=== PATIENT | male | born 1935 | race Caucasian/White ===

== ENCOUNTER 2016-07-14 11:22 | Outpatient (CLI) | payer OTHER ==
--- NOTE | 2016-07-14 23:43 | Diagnostic Imaging Report ---
ANISH LAWRENCE [facility] [address] [facility] [address] [address] Report Submission Date: Jul 14, 2016 12:53:34 PM CDT Patient Study Name: CECILE DOS SANTOS Date: Jul 14, 2016 11:43:04 AM CDT Modality Type: CR Gender: M Description: LOWER EXTREMITY : 31 Institution: [facility] Physician: ANISH LAWRENCE Right foot 3 views Clinical history pain Technique AP lateral oblique Findings: Prominent arthritic changes are present 1st metatarsophalangeal joint. No fracture lytic changes seen. The interphalangeal joint degenerative arthritis is present and multiple joints. The calcaneus appears normal Impression: Multi joint degenerative arthritis. No acute foot pathology Electronically signed on Jul 14, 2016 12:53:34 PM CDT by: Juvencio MORGAN
--- NOTE | 2016-07-14 23:44 | Diagnostic Imaging Report ---
ANISH LAWRENCE [facility] [address] [facility] [address] [address] Report Submission Date: Jul 14, 2016 12:57:12 PM CDT Patient Study Name: CECILE DOS SANTOS Date: Jul 14, 2016 11:40:42 AM CDT Modality Type: CR Gender: M Description: LOWER EXTREMITY : 33 Institution: [facility] Physician: ANISH LAWRENCE Right ankle 3 views Clinical history pain Technique AP lateral oblique Findings: Arthritic changes are present in the ankle joint. I see no fracture or lytic change. There soft tissue swelling. Impression: Soft tissue swelling with no acute bony pathology Electronically signed on Jul 14, 2016 12:57:12 PM CDT by: Juvencio MORGAN
== END 2016-07-14 11:23 ==
LOC: RAD 11:22
PROVIDERS: ATTEND Family Medicine
DX: E11.9 Type 2 diabetes mellitus without complications (principal); M79.671 Pain in right foot
CPT/HCPCS: 36415; 73610; 73630; 83036; 84550

== ENCOUNTER 2017-01-10 09:07 | Outpatient (CLI) | payer OTHER ==
[2017-01-10 09:52] LABS: eGFR (African) 41; eGFR (Non-African) 34
== END 2017-01-10 09:30 ==
LOC: LAB 09:07
PROVIDERS: ATTEND Family Medicine
DX: E11.9 Type 2 diabetes mellitus without complications (principal)
CPT/HCPCS: 36415; 80053; 80061; 82043; 83036

== ENCOUNTER 2017-05-03 13:33 | Outpatient (CLI) | payer OTHER ==
--- NOTE | 2017-05-05 09:38 | OP Clinic Progress Note ---
REASON FOR VISIT: This 82-year-old man is seen with bilateral hearing loss. He has had some effort made to have cerumen cleaned out of his ears but to no avail. Under the microscope in the clinic, I debrided and cleaned both ears of 100% obstructed ear canals bilaterally with hard impacted cerumen. After doing this , you can see both eardrums are intact and otherwise normal. PLAN: He may return on a p.r.n. basis. He is not given a specific appointment and his hearing is clinically markedly improved. cc: Dr. Renetta MORGAN
== END 2017-05-03 13:34 ==
LOC: ENT 13:33
PROVIDERS: ATTEND Otolaryngology
DX: H61.23 Impacted cerumen, bilateral (principal)
CPT/HCPCS: 69210; G0463

== ENCOUNTER 2017-11-01 15:02 | Outpatient (CLI) | payer OTHER ==
[2017-11-01 15:24] LABS: BASOPHILS % 0.4 (0.0-1.5); EOSINOPHILS % 1.2 % (0.0-6.8); MEAN CORPUSCULAR HEMOGLOBIN 32.9 pg (28.0-34.0); MEAN CORPUSCULAR VOLUME 99.8 fl (80.0-100.0); MONOCYTES % 5.1 % (0.0-11.0); NEUTROPHILS # 6.7 # k/uL (1.4-7.7)
== END 2017-11-01 15:03 ==
LOC: LAB 15:02
PROVIDERS: ATTEND Family Medicine
DX: M25.532 Pain in left wrist (principal)
CPT/HCPCS: 84550; 85025

== ENCOUNTER 2018-03-15 10:45 | Outpatient (CLI) | payer OTHER ==
[2018-03-15 14:03] LABS: eGFR (Non-African) 25
--- NOTE | 2018-03-15 16:23 | Diagnostic Imaging Report ---
ANISH LAWRENCE [facility] [address] [facility] [address] [address] Report Submission Date: Mar 15, 2018 12:02:50 PM REAL ESTATE ACCOUNTANT Patient Study Name: CECILE DOS SANTOS Date: Mar 15, 2018 11:06:17 AM REAL ESTATE ACCOUNTANT Modality Type: DX Gender: M Description: UPPER EXTREMITY : 33 Institution: [facility] Physician: ANISH LAWRENCE Examination: Plain film wrist History: LEFT WRIST, PAIN FOR ABOUT A WEEK, NO KNOWN INJURY (Hx) Comparison exams: None available Findings: 3 views of the left wrist demonstrates osteopenia. Articular degenerative changes: most pronounced involving the 1st carpal metacarpal articulation. No suspicious cortical abnormalities. No soft tissue abnormality. Impression: Osteopenia and degenerative changes. No acute appearing osseous abnormality Electronically signed on Mar 15, 2018 12:02:50 PM REAL ESTATE ACCOUNTANT by: Prince MORGAN
== END 2018-03-15 10:46 ==
LOC: LAB 10:45
PROVIDERS: ATTEND Family Medicine
DX: E11.9 Type 2 diabetes mellitus without complications (principal); M85.88 Other specified disorders of bone density and structure, other site; M24.132 Other articular cartilage disorders, left wrist; M25.532 Pain in left wrist
CPT/HCPCS: 36415; 73110; 80053; 80061; 83036; 84550

== ENCOUNTER 2018-06-26 14:33 | Outpatient (CLI) | payer OTHER | END 2018-06-26 14:38 | disposition home or self-care (01) | LOC: LAB 14:33 | PROVIDERS: ATTEND Family Medicine | DX: E11.9 Type 2 diabetes mellitus without complications (principal) | CPT/HCPCS: 36415; 83036 ==

== ENCOUNTER 2018-07-08 16:58 | Emergency (ER) | payer OTHER ==
[2018-07-08] MEDS: PROPARACAINE HCL 0.5% OPTH 15 ML BOTTLE OD ONE (17:10)
[2018-07-08] MEDS: OPTH IRRIGATION SOLUTION 120 ML BTL OS ONE (17:20)
[2018-07-08] MEDS: DIPH,PERTUSS(ACELL),TET VAC/PF 0.5 ML DISP.SYRIN IM ONE (17:35)
--- NOTE | 2018-07-08 17:38 | ED Physician Documentation ---
Eye Problem - HISTORIAN Historian: patient - HPI Chief Complaint: Eye Problems Additional Information: unable to perform acuity; patient did not bring glasses. Cannot visualize large E on Shellen eye chart. Onset: minutes Associated symptoms: foreign body Context: foreign body Where: home Further Comments: yes (83 year old male patient brought in by his son with complaint of FB in left eye. Patient states he was outside near the grill when something flew in his eye. Complains of itching and foreign body sensation. Patient did not wear his glasses to the ER.) - ROS CONST: no problems CVS/RESP: none EYES/ENT: none GI/: denies: nausea, vomiting NEURO: denies: headache - PAST HX Past History: diabetes Type 2, hypertension, other (thoracic aortic aneurysm, BPH, HLD) Allergies/Adverse Reactions: Allergies Allergy/AdvReac Type Severity Reaction Status Date / Time No Known Drug Allergies Allergy Unknown Verified 07/08/18 17:14 - SOCIAL HX Smoking History: non-smoker - FAMILY HX Family History: none - REVIEWED ASSESSMENTS Nursing Assessment Reviewed: Yes Vitals Reviewed: Yes Progress - Progress Progress: No ophthalmic ointment available. Son picked up patient's prescription and brought to ER. First dose started. ED Results Lab/Radiology - Orders Orders: ED Orders Category Date Time Status Eye Acuity 1T Care 07/08/18 17:35 Ordered Diph,Pertuss(Acell),Tet Vac/Pf [Adacel] Med 07/08/18 17:30 Once 0.5 ml IM .ONCE ONE Opth Irrigation Solution [Eye Wash Solution] Med 07/08/18 17:18 Discontinued 120 ml .ROUTE .STK-MED ONE Opth Irrigation Solution [Eye Wash Solution] Med 07/08/18 17:35 Once 120 ml OS NOW ONE Proparacaine HCl 0.5% Opth [Ophthaine 0.5% Opth] Med 07/08/18 17:10 Discontinued 15 drop .ROUTE .STK-MED ONE Proparacaine HCl 0.5% Opth [Ophthaine 0.5% Opth] Med 07/08/18 17:10 Discontinued 2 drop OD NOW ONE Eye Problem Physical Exam - Physical Exam General Appearance: mild distress Examined with Slit Lamp: No Visual Acuity: other (cannot complete. Patient cannot see E on Snellen eye chart; uses glasses. ) Eyelids: nml inspection Conjunctiva and Sclera: nml inspection Corneas: fluorescein dye uptake (L) (at 12 o'clock position; corneal abrasion 5 mm) EOM: intact Pupils: equal Skin: nml color, warm, skin intact Respiratory: no resp distress CVS: reg rate & rhythm Neuro/Psych: oriented x3, mood/affect nml Discharge Clincal Impression: Corneal abrasion, left Qualifiers: Encounter type: initial encounter Qualified Code(s): S05.02XA - Injury of conjunctiva and corneal abrasion without foreign body, left eye, initial encounter Referrals: Renetta Miranda MD [Primary Care Provider] - 2 Days Additional Instructions: Erythromycin ointment to left eye QID x 5 days. You need to be re-evaluated by ophthalmology tomorrow. Corneal abrasions can develop into corneal ulcers which can cause significant vision problems. Condition: Stable Disposition: 01 HOME, SELF-CARE Decision to Admit: NO Decision Time: 17:37
[2018-07-08 17:40] VITALS: BP 148/65
[2018-07-08] MEDS: PROPARACAINE HCL 0.5% OPTH 15 ML BOTTLE ONE (17:41)
[2018-07-08] MEDS: OPTH IRRIGATION SOLUTION 120 ML BTL ONE (17:42)
== END 2018-07-08 17:56 | disposition home or self-care (01) ==
LOC: ED 16:58
DX: S05.02XA Injury of conjunctiva and corneal abrasion without foreign body, left eye, initial encounter (principal); X58.XXXA Exposure to other specified factors, initial encounter; Y93.89 Activity, other specified; Y92.008 Other place in unspecified non-institutional (private) residence as the place of occurrence of the external cause
CPT/HCPCS: 90471; 90715; 99283

== ENCOUNTER 2018-10-25 08:35 | Outpatient (CLI) | payer OTHER ==
[2018-10-25 09:30] LABS: eGFR (Non-African) 38
== END 2018-10-25 08:38 ==
LOC: LAB 08:35
PROVIDERS: ATTEND Family Medicine
DX: E78.5 Hyperlipidemia, unspecified (principal)
CPT/HCPCS: 36415; 80048

== ENCOUNTER 2018-12-10 09:20 | Outpatient (CLI) | payer OTHER ==
[2018-12-10 09:59] LABS: eGFR (Non-African) 30
== END 2018-12-10 09:22 ==
LOC: LAB 09:20
PROVIDERS: ATTEND Family Medicine
DX: E87.5 Hyperkalemia (principal)
CPT/HCPCS: 36415; 80053